=== PATIENT | female | born 1965 | race Caucasian/White ===

== ENCOUNTER 2023-09-19 08:48 | Emergency (ER) | payer BC ==
[~2023-09-19] VITALS: Ht 172.7 cm; Wt 52.2 kg
[2023-09-19] MEDS: ACETAMINOPHEN 500 MG TABLET PO ONE (09:22)
[2023-09-19] MEDS ORDERED: NAPR375T6 PO (09:45)
[2023-09-19 10:00] VITALS: BP 156/88; PULSE 80; RESP 16; O2SAT 98
== END 2023-09-19 10:16 | disposition home or self-care (01) ==
LOC: EDH 08:48
DX: S96.912A Strain of unspecified muscle and tendon at ankle and foot level, left foot, initial encounter (principal); E03.9 Hypothyroidism, unspecified; Z98.890 Other specified postprocedural states; X50.1XXA Overexertion from prolonged static or awkward postures, initial encounter; Y93.89 Activity, other specified; Y92.89 Other specified places as the place of occurrence of the external cause; Y99.8 Other external cause status
CPT/HCPCS: 73630